=== PATIENT | male | born 1950 | race Two or more races ===

== ENCOUNTER 2018-04-26 10:58 | Emergency (ER) | payer OTHER ==
[~2018-04-26] VITALS: Ht 177.8 cm; Wt 85.7 kg
[~2018-04-26 10:58] MED LIST: CITA-73 PO; ENAL5TAB PO; GLYB5TAB8 PO; LORA-205 PO; MECL12.5 PO; METF-370; SILD100T57 PO
[2018-04-26 11:19] VITALS: BP 137/68
[2018-04-26] MEDS ORDERED: PROMETHAZINE HCL 25 MG/ML 1ML IM ONE (12:00)
[2018-04-26] MEDS ORDERED: MEPERIDINE HCL (50 MG/ML) 1 ML VIAL IM ONE (12:00)
== END 2018-04-26 13:06 | disposition home or self-care (01) ==
LOC: ER 11:07
DX: M54.16 Radiculopathy, lumbar region (principal); G89.29 Other chronic pain; E11.9 Type 2 diabetes mellitus without complications; E78.5 Hyperlipidemia, unspecified; I10 Essential (primary) hypertension; F17.210 Nicotine dependence, cigarettes, uncomplicated
CPT/HCPCS: 96372; 99283; J2175; J2550